=== PATIENT | male | born 1950 | race Caucasian/White ===

== ENCOUNTER 2019-04-09 08:09 | Inpatient (IN) | payer OTHER, BC | END 2019-04-12 14:00 | disposition home or self-care (01) | LOC: JER 08:09 → JERBED 11:45 → J4S 20:42 ==

== ENCOUNTER 2020-11-30 11:46 | Emergency (ER) | payer OTHER, BC | END 2020-11-30 16:50 | disposition home or self-care (01) | LOC: JVIRT 11:46 | DX: U07.1 COVID-19 (principal) | CPT/HCPCS: C9803; G2012-GT; U0003 ==